=== PATIENT | male | born 1990 | race Two or more races ===

== ENCOUNTER 2019-11-04 23:25 | Emergency (ER) | payer SELFPAY ==
[2019-11-04 23:32] VITALS: BP 111/69; PULSE 108; TEMP 98.8; BMI 29.1
[2019-11-04] MEDS ORDERED: OSELTAMIVIR PHOSPHATE 75 MG CAPSULE PO ONE (23:33)
[2019-11-04] MEDS ORDERED: OSELTAMIVIR PHOSPHATE 75 MG CAPSULE ONE (23:37)
--- NOTE | 2019-11-04 23:38 | PDOC ---
History of Present Illness - General Chief Complaint: Pain, Acute Stated Complaint: SORE THROAT/FEVER Time Seen by Provider: 11/04/19 23:29 History Source: Patient Exam Limitations: No Limitations - History of Present Illness Initial Comments: 11/04/19 23:36 This is a 29-year-old male who comes in complaining of headache, body aches, fever, sore throat, mild cough. Patient said he has had a sore throat for several days but then developed the rest of the symptoms today. Patient did not get his influenza shot this year. Patient took aspirin prior to coming in and does not have fever now. Patient said his temperature was 100.8 prior to taking the aspirin. Allergies: as per nursing notes Past Medical History: none Social history: Lives with family. No smoking. No alcohol. No illicit drugs. Surgical history: None General: + fevers and chills, no weakness, no weight loss HEENT: No change in vision. + sore throat,. No ear pain CardioVascular: no chest discomfort. No shortness of breath Respiratory:No cough, or wheezing. Gastrointestinal: no nausea, vomiting, diarrhea or constipation, No rectal bleeding Genitourinary: No dysuria, hematuria, or frequency Musculoskeletal: No joint or muscle pain or swelling Neurologic: No headache, vertigo, dizziness or loss of consciousness Psychiatric: nor depression Skin: No rashes or easy bruising Endocrine: no increased thirst or abnormal weight change Allergic: no skin or latex allergy All other systems reviewed and normal GENERAL: The patient is awake, alert, and fully oriented, in no acute distress. HEAD: Normal with no signs of trauma. THROAT: There is erythema the posterior oropharynx. The tonsils are slightly enlarged but there is no exudate. There is no lymphadenopathy submandibular posterior. EYES: Pupils equal, round and reactive to light, extraocular movements intact, sclera anicteric, conjunctiva clear. EXTREMITIES:atraumatic, Normal range of motion, no edema. NEUROLOGICAL: Normal speech, normal gait. PSYCH: Normal mood, normal affect. SKIN: Warm, Dry, normal turgor, no rashes or lesions noted. Assessment and plan: This is a 29-year-old male who comes in complaining of influenza-like symptoms. Patient started on Tamiflu and a Monospot was sent as well. Patient discharged on Tamiflu and will follow-up with his primary care doctor Past History - Past Medical History Allergies/Adverse Reactions: Allergies Allergy/AdvReac Type Severity Reaction Status Date / Time No Known Allergies Allergy Verified 11/04/19 23:27 Home Medications: Ambulatory Orders Oseltamivir Phosphate [Tamiflu] 75 mg PO BID #10 capsule 11/04/19 Asthma: Yes COPD: No - Psycho Social/Smoking Cessation Hx Smoking History: Never smoked Have you smoked in the past 12 months: No Number of Cigarettes Smoked Daily: 4 Information on smoking cessation initiated: No 'Breaking Loose' booklet given: 06/17/16 Hx Alcohol Use: No Drug/Substance Use Hx: No Substance Use Type: None *Physical Exam - Vital Signs Last Vital Signs Temp Pulse Resp BP Pulse Ox 98.8 F 108 H 16 111/69 100 11/04/19 23:29 11/04/19 23:29 11/04/19 23:29 11/04/19 23:29 11/04/19 23:29 Discharge - Discharge Information Problems reviewed: Yes Clinical Impression/Diagnosis: Influenza-like illness Condition: Stable Disposition: HOME - Admission No - Follow up/Referral - Patient Discharge Instructions Additional Instructions: Take Tamiflu 1 tablet twice a day for 5 days. Take ibuprofen 3 tablets 3 times a day with food as needed for fever or Tylenol 2 extra strength tablets 4 times a day. Return to the emergency department immediately with ANY new, persistent or worsening symptoms. Continue any medications as previously prescribed by your physician. You should follow up with your primary doctor as soon as possible regarding today's emergency department visit. . Please make sure your doctor reviews the results of your emergency evaluation. Thank you for coming to the Emergency Department today for your care. It was a pleasure to see you today. Please note that your evaluation is INCOMPLETE until you follow-up with your doctor. - Post Discharge Activity
== END 2019-11-04 23:50 | disposition home or self-care (01) ==
LOC: FER 23:25
DX: J10.1 Influenza due to other identified influenza virus with other respiratory manifestations (principal); J45.909 Unspecified asthma, uncomplicated; Z87.891 Personal history of nicotine dependence
CPT/HCPCS: 36415; 86308; 99281-25

== ENCOUNTER 2019-11-08 00:19 | Emergency (ER) | payer OTHER ==
[2019-11-08 00:56] VITALS: BP 120/70; BMI 29.2
--- NOTE | 2019-11-08 01:01 | PDOC ---
History of Present Illness - General Chief Complaint: Cold Symptoms Stated Complaint: FLU LIKE SYMPTOMS Time Seen by Provider: 11/08/19 00:41 - History of Present Illness Initial Comments: 11/08/19 00:56 CHIEF COMPLAINT: not feeling well HISTORY OF PRESENT ILLNESS: 29 yo M with no PMH presents to ED with "not feeling well at all." Patient reports he has been coughing, sneezing, runny nose, sore throat. Patient was seen at [facility] 4 days ago and was diagnosed with "maybe mono or flu" and was prescribed Tamiflu, but he has taken it for 4 days and has been getting worse. Patient denies N/V/D. Patient has been taking Tylenol and aspirint without relief. No recent travel or sick contacts. PAST MEDICAL HISTORY: Denies past medical history FAMILY HISTORY: Denies SOCIAL HISTORY: Denies tobacco, alcohol, illicit drug use. SURGICAL HISTORY: Denies ALLERGIES: No known drug allergies REVIEW OF SYSTEMS General/Constitutional: Fever, Tmax 100.8F. Denies weakness, weight change. HEENT: Denies change in vision. Denies ear pain or discharge. Denies sore throat. Cardiovascular: Denies chest pain or shortness of breath. Respiratory: Dry cough x 1.5 weeks. Denies wheezing, or hemoptysis. Gastrointestinal: Denies nausea, vomiting, diarrhea or constipation. Denies rectal bleeding. Genitourinary: Denies dysuria, frequency, or change in urination. Musculoskeletal: Denies joint or muscle swelling or pain. Denies neck or back pain. Skin and breasts: Denies rash or easy bruising. Neurologic: Denies headache, vertigo, loss of consciousness, or loss of sensation. Psychiatric: Denies depression or anxiety. PHYSICAL EXAM General Appearance: Well-appearing, appropriately dressed. No apparent distress. HEENT: Swollen turbinates, rhinorrhea, post nasal drip. EOMI, PERRLA, normal ENT inspection, normal voice, TMs normal, pharynx normal. No conjunctival pallor. No photophobia, scleral icterus. Neck: Supple. Trachea midline. No tenderness, rigidity, carotid bruit, stridor , lymphadenopathy, or thyromegaly. Respiratory/Chest: Lungs CTAB. No shortness of breath, chest tenderness, respiratory distress, accessory muscle use. No crackles, rales, rhonchi, stridor , wheezing, dullness Cardiovascular: RRR. S1, S2. No JVD, murmur, bradycardia, tachycardia. Vascular Pulses: Dorsalis-Pedis (R): 2+, Dorsalis-Pedis (L): 2+ Gastrointestinal/Abdominal: Normal bowel sounds. Abdomen soft, non-distended. No tenderness or rebound tenderness. No organomegaly, pulsatile mass, guarding , hernia, hepatomegaly, splenomegaly. Lymphatic: No adenopathy, tenderness. Musculoskeletal/Extremities: Normal inspection. FROM of all extremities, normal capillary refill. Pelvis Stable. No CVA tenderness. No tenderness to extremities, pedal edema, swelling, erythema or deformity. Integumentary: Appropriate color, dry, warm. No cyanosis, erythema, jaundice or rash Neurologic: grab hooker II-XII intact. Fully oriented, alert. Appropriate mood/affect. Motor strength 5/5. No appreciable EOM palsy, facial droop or sensory deficit. Past History - Past Medical History Allergies/Adverse Reactions: Allergies Allergy/AdvReac Type Severity Reaction Status Date / Time No Known Allergies Allergy Verified 11/08/19 00:39 Home Medications: Ambulatory Orders Oseltamivir Phosphate [Tamiflu] 75 mg PO BID #10 capsule 11/04/19 Azithromycin [Zithromax 250mg Tablets -] 250 mg PO UTDICT #6 tab 11/08/19 Benzonatate [Tessalon Pearls -] 100 mg PO TID #21 capsule 11/08/19 Ibuprofen 600 mg PO QID #30 tablet 11/08/19 Pseudoephedrine HCl [Pseudoephedrine ER] 120 mg PO BID #20 tablet.er 11/08/19 Asthma: Yes COPD: No - Psycho Social/Smoking Cessation Hx Smoking History: Never smoked Have you smoked in the past 12 months: No Number of Cigarettes Smoked Daily: 4 Information on smoking cessation initiated: No 'Breaking Loose' booklet given: 06/17/16 Hx Alcohol Use: No Drug/Substance Use Hx: No Substance Use Type: None *Physical Exam - Vital Signs Last Vital Signs Temp Pulse Resp BP Pulse Ox 98.7 F 98 H 20 120/70 98 11/08/19 00:39 11/08/19 00:39 11/08/19 00:39 11/08/19 00:39 11/08/19 00:39 Medical Decision Making - Medical Decision Making 11/08/19 00:58 29 yo M with no PMH presents to ED with cough, runny nose, sore throat. -flu -CXR Discharge - Discharge Information Problems reviewed: Yes Clinical Impression/Diagnosis: Cough in adult Condition: Stable Disposition: HOME - Admission No - Additional Discharge Information Prescriptions: Azithromycin [Zithromax 250mg Tablets -] 250 mg PO UTDICT #6 tab Benzonatate [Tessalon Pearls -] 100 mg PO TID #21 capsule Ibuprofen 600 mg PO QID #30 tablet Pseudoephedrine HCl [Pseudoephedrine ER] 120 mg PO BID #20 tablet.er - Follow up/Referral Referrals: Murphy Toribio MD [Staff Physician] - - Patient Discharge Instructions Patient Printed Discharge Instructions: How to Use Antibiotics Wisely Additional Instructions: Please take medications as prescribed and complete the entire course of antibiotics,even if your symptoms improve. If you develop any persistent fever , chills, nausea, vomiting, diarrhea, or any new or worsening symptoms, please return to the ER. - Post Discharge Activity Work/Back to School Note: Back to Work
[2019-11-08] MEDS ORDERED: IBUPROFEN 600 MG TABLET (FP) PO ONE (01:29)
[2019-11-08] MEDS ORDERED: IBUPROFEN 400 MG TABLET (FP) PO ONE (01:30)
[2019-11-08 02:51] VITALS: TEMP 99.6
[2019-11-08 02:52] VITALS: PULSE 90
== END 2019-11-08 02:55 | disposition home or self-care (01) ==
LOC: JER 00:19
DX: R05 Cough (principal)
CPT/HCPCS: 71046-TC-FY; 87804; 99282-25

== ENCOUNTER 2021-05-08 01:34 | Emergency (ER) | payer SELFPAY ==
[2021-05-08 01:57] VITALS: BP 109/70; PULSE 86; TEMP 98.7; BMI 27.4
[2021-05-08] MEDS ORDERED: PENICILLIN G BENZATHINE 1,200,000 UNIT/2 ML PFS IM ONE ×2 (02:59→03:08)
[2021-05-08] MEDS ORDERED: predniSONE 20 MG TABLET (UD) PO ONE (03:00)
[2021-05-08] MEDS ORDERED: predniSONE 20 MG TABLET (UD) ONE (03:07)
== END 2021-05-08 03:36 | disposition home or self-care (01) ==
LOC: JER 01:34
DX: J02.9 Acute pharyngitis, unspecified (principal)
CPT/HCPCS: 99284-25